=== PATIENT | male | born 1985 | race Two or more races ===

== ENCOUNTER 2019-12-20 12:03 | Emergency (ER) | payer SELFPAY ==
[~2019-12-20] VITALS: Ht 167.6 cm; Wt 89.0 kg
[2019-12-20 13:36] VITALS: BP 137/101
== END 2019-12-20 13:35 | disposition home or self-care (01) ==
LOC: ER 12:03
DX: Z04.89 Encounter for examination and observation for other specified reasons (principal)
CPT/HCPCS: 99281

== ENCOUNTER 2023-05-20 10:39 | Emergency (ER) | payer MEDICAID ==
[~2023-05-20] VITALS: Ht 170.2 cm; Wt 91.0 kg
[2023-05-20 10:42] VITALS: O2SAT 99
[2023-05-20] MEDS ORDERED: LIDOCAINE HCL/PF 1% 10 MG/ML 5ML VIAL INFIL ONE (11:15)
[2023-05-20] MEDS ORDERED: TETANUS, DIPHTHERIA, PERTUSSIS VAC/PF 0.5ML (>10YR OLD) IM ONE (11:15)
[2023-05-20] MEDS ORDERED: BO1 TP (12:07)
[2023-05-20 12:57] VITALS: BP 130/76; PULSE 79; RESP 16; TEMP 98.6
== END 2023-05-20 13:13 | disposition home or self-care (01) ==
LOC: ER 10:39
DX: S61.012A Laceration without foreign body of left thumb without damage to nail, initial encounter (principal); X58.XXXA Exposure to other specified factors, initial encounter; Y93.89 Activity, other specified; Y92.89 Other specified places as the place of occurrence of the external cause; Y99.8 Other external cause status
CPT/HCPCS: 90715; 12001; 90471; 99283; J3490; Z7610